=== PATIENT | male | born 2000 | race American Indian/Alaskan Native ===

== ENCOUNTER 2019-09-14 11:42 | Emergency (ER) | payer SELFPAY ==
[2019-09-14 11:53] VITALS: BP 139/86
--- NOTE | 2019-09-14 12:26 | XRay Report ---
Left shoulder-3 views INDICATION: MAIN: left shoulder pain ; pt complain left shoulder pops when he moves it x 1 week. COMPARISON: None. IMPRESSION: No acute osseous or soft tissue abnormality. No significant DJD. Signer Name: Miguel Ángel Soliz MD Signed: 09/14/2019 12:21 PM Workstation Name: [id number]
--- NOTE | 2019-09-14 12:37 | Emergency Department Report ---
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 States that following those 2 events he began having dull throbbing pain which was worsened with palpation and extension and elevation of his shoulder and elbow. IcyHot and sling do help manage the symptoms. Reports no numbness or tingling to the hand or wrist or fingers does still have full range of motion. Symptoms have been been present for the last 2 weeks) Mechanism: Fall Symptoms: Yes Pain with Movement, No Limited Range of Movement, No Swelling, No Bruising/Ecchymosis ED Review of Systems ROS: Stated complaint: LEFT ROTATOR CUFF FEELS TORN Other details as noted in HPI Comment: All other systems reviewed and negative ED Past Medical Hx - Past Medical History Previous Medical History?: No - Surgical History Past Surgical History?: No - Social History Smoking Status: Never Smoker Substance Use Type: None - Medications Home Medications: Home Medications Medication Instructions Recorded Confirmed Last Taken Type Ketorolac [Toradol] 10 mg PO Q6H PRN #14 tablet 09/14/19 Unknown Rx Upper Extremity Exam - Exam General: Vital signs noted. No distress. Alert and acting appropriately. Head and Torso: No HEENT Abnormality, No Neck Tenderness, No Chest/Lungs Abnormality, No Abdominal Tenderness, No Back Tenderness Shoulder Exam: Yes Shoulder Tenderness (No sulcus sign. Pain with O'Briens and Coyle test. Strength 5 of 5 full range of motion is noted. No scapular tenderness noted. No rashes or discoloration.), Yes Normal Range of Motion in Shoulder, No Clavicle Tenderness, No Shoulder Deformity, No AC Joint Tenderness Arm Exam: No Arm/Humerus Tenderness, No Arm Deformity Elbow: Yes Elbow Tenderness (There is some tenderness to the lateral epicondyles of the elbow as well. There is full range of motion no crepitus is noted.), No Normal Range of Motion in Elbow, No Elbow Deformity Forearm: No Forearm Tenderness, No Forearm Deformity, No Pain with Pronation, No Pain with Supination Wrist: Yes Normal ROM in Wrist, No Wrist Tenderness, No Wrist Deformity, No Snuffbox Tenderness, No Pain with Axial Thumb Compression Hand: Yes Normal ROM in Digit(s), No Hand Tenderness, No Hand Deformity, No Digit Tenderness, No Digit(s) Deformity, No Tendon Dysfunction CMS Exam: No Broken Skin, No Normal Distal Pulses, No Normal Capillary Refill, No Normal Distal Sensation ED Course Vital Signs 09/14/19 11:48 Temperature 98.2 F Pulse Rate 63 Respiratory 18 Rate Blood Pressure 139/86 [Left] O2 Sat by Pulse 97 Oximetry Critical care attestation.: If time is entered above; I have spent that time in minutes in the direct care of this critically ill patient, excluding procedure time. ED Disposition Clinical Impression: Left elbow tendonitis Disposition: - TO HOME OR SELFCARE Is pt being admited?: No Does the pt Need Aspirin: No Condition: Stable Instructions: Elbow Sprain (ED), Tennis Elbow (ED), Ice Pack Application (ED) Prescriptions: Ketorolac [Toradol] 10 mg PO Q6H PRN #14 tablet PRN Reason: Pain Referrals: ANEUDY GRANADOS MD [Staff Physician] - 3-5 Days
== END 2019-09-14 12:47 | disposition home or self-care (01) ==
LOC: ED 11:42
DX: M77.9 Enthesopathy, unspecified (principal); M25.512 Pain in left shoulder; M25.522 Pain in left elbow; Z79.899 Other long term (current) drug therapy

== ENCOUNTER 2019-12-19 11:36 | Emergency (ER) | payer SELFPAY ==
[2019-12-19 13:13] VITALS: BP 136/79
--- NOTE | 2019-12-19 13:19 | Emergency Department Report ---
Chief Complaint: Upper Respiratory Infection Stated Complaint: NOSE PAIN Time Seen by Provider: 12/19/19 13:15 - HPI History of Present Illness: 19-year-old healthy male presents to the ED complaining of loss of sense of smell for the past 5 days. Patient states that around December 10 he noticed a sore throat which has resolved completely now. Patient states that his loss of smell began December 13. Patient states now he is able to smell certain things but no injuries or trauma. Patient states he went to pharmacy and was told he has nasal polyps. Patient denies fever/chills/nausea vomiting. Patient states he works at [employer] and is unsure if he had any sick contact. Patient denies chest pain, shortness of breath - ROS Review of Systems: As noted in HPI - Exam Vital Signs: Vital Signs 12/19/19 13:13 Temperature 97.7 F Pulse Rate 60 Respiratory 14 Rate Blood Pressure 136/79 O2 Sat by Pulse 99 Oximetry Physical Exam: GENERAL: Alert and oriented x3, no apparent distress, Normal Gait, atraumatic. HEAD: Head is normocephalic and a-traumatic. NOSE: Nose symetrical, Nontender,Nares appeared normal. MOUTH:Mouth is well hydrated and without lesions. Tonsils nonerythematous or swollen, Uvula midline, Tongue not elevated. Mucous membranes are moist. Posterior pharynx clear, no exudate or lesions. Patent airways. NECK: Supple. Non edematous, LUNGS: Symetrical with respiration, No wheezing, no rales or crackles, CTAB. HEART: S1, S2 present, regular rate and rhythm SKIN: Warm and dry, No lesions, No ulceration or induration present. MSE screening note: Focused history and physical exam performed. Due to findings the following was ordered: ED Medical Decision Making - Medical Decision Making 19-year-old male presents with physically well but worried. Discussed with the patient that this may sounds like symptoms of allergies or he may have been exposed to COVID-19. Discussed with patient to get tested as soon as he can and quarantine at home. Patient reports feeling well, no respiratory distress and is in no acute distress. All vital signs are normal. Discussed with patient to follow-up with primary care physician as referred. ED Disposition for MSE Clinical Impression: Nasal polyp, Rhinitis Disposition: - TO HOME OR SELFCARE Is pt being admited?: No Does the pt Need Aspirin: No Condition: Stable Instructions: COVID-19, Allergic Rhinitis (ED) Additional Instructions: Make sure to follow up with the primary care physician as discussed. Take all your medications as you've been prescribed. If you have any worsening symptoms or develop new symptoms please return to ED immediately. Referrals: PRIMARY CARE, [Primary Care Provider] - 3-5 Days [facility] [Outside] - 3-5 Days [facility] [Outside] - 3-5 Days Forms: Work/School Release Form(ED) Time of Disposition: 13:36
== END 2019-12-19 13:44 | disposition left against medical advice (07) ==
LOC: ED 11:36
DX: R04.0 Epistaxis (principal); Z53.21 Procedure and treatment not carried out due to patient leaving prior to being seen by health care provider

== ENCOUNTER 2021-12-18 10:10 | Emergency (ER) | payer SELFPAY ==
[2021-12-18 10:32] VITALS: BP 130/79
--- NOTE | 2021-12-18 13:48 | Emergency Department Report ---
ED Male HPI - General Chief complaint: Urogenital-Male Stated complaint: SIDE PAIN, RASH Time Seen by Provider: 12/18/21 13:29 Source: patient Mode of arrival: Ambulatory Limitations: No Limitations - History of Present Illness Initial comments: Patient 21-year-old male who presents for penile rash with clear discharge for the past 2 weeks. States dysuria frequency urgency no open sores or canker. Patient advises partner has no symptoms. No fevers no chills. No history of HSV or HIV. Symptoms are exacerbated by patient scratching. Relieved by nothing tried. Patient denies pain or penile discharge at this time. - Related Data Previous Rx's Medication Instructions Recorded Last Taken Type Ketorolac [Toradol] 10 mg PO Q6H PRN #14 tablet 09/14/19 Unknown Rx DOXYCYCLINE Hyclate [Vibramycin 100 mg PO BID #14 capsule 12/18/21 Unknown Rx CAP] Allergies Allergy/AdvReac Type Severity Reaction Status Date / Time No Known Allergies Allergy Verified 09/14/19 11:48 ED Review of Systems ROS: Stated complaint: SIDE PAIN, RASH Other details as noted in HPI Constitutional: denies: chills, fever Eyes: denies: eye pain, eye discharge, vision change ENT: as per HPI Respiratory: denies: cough, shortness of breath, wheezing Cardiovascular: denies: chest pain, palpitations Endocrine: no symptoms reported Gastrointestinal: denies: abdominal pain, nausea, diarrhea Genitourinary: discharge (Clear), other. denies: urgency, dysuria (Penile rash), frequency, hematuria Musculoskeletal: denies: back pain, joint swelling, arthralgia Skin: denies: rash, lesions Neurological: denies: headache, weakness, paresthesias Psychiatric: denies: anxiety, depression Hematological/Lymphatic: denies: easy bleeding, easy bruising ED Past Medical Hx - Past Medical History Previous Medical History?: No - Surgical History Past Surgical History?: No - Social History Smoking Status: Current Some Day Smoker Substance Use Type: Marijuana - Medications Home Medications: Home Medications Medication Instructions Recorded Confirmed Last Taken Type Ketorolac [Toradol] 10 mg PO Q6H PRN #14 tablet 09/14/19 Unknown Rx DOXYCYCLINE Hyclate [Vibramycin 100 mg PO BID #14 capsule 12/18/21 Unknown Rx CAP] ED Physical Exam - General Limitations: No Limitations General appearance: alert, in no apparent distress - Head Head exam: Present: normocephalic, normal inspection - Eye Eye exam: Present: EOMI Pupils: Present: normal accommodation - ENT ENT exam: Present: mucous membranes moist - Neck Neck exam: Present: normal inspection, full ROM. Absent: tenderness, lymphadenopathy - Respiratory Respiratory exam: Present: normal lung sounds bilaterally. Absent: respiratory distress, wheezes - Cardiovascular Cardiovascular Exam: Present: regular rate, normal rhythm, normal heart sounds. Absent: systolic murmur, diastolic murmur, rubs, gallop - GI/Abdominal GI/Abdominal exam: Present: soft, normal bowel sounds. Absent: distended, tenderness - Rectal Rectal exam: Present: deferred - exam: Present: circumcision, other (Rash dry flaky to glans penis no discharge noted rash is nonpainful). Absent: testicular tenderness, urethral discharge, scrotal swelling External exam: Absent: erythema, swelling, lesions, lacerations, ecchymosis, bleeding - Extremities Exam Extremities exam: Present: normal inspection, full ROM, normal capillary refill - Back Exam Back exam: Present: normal inspection, full ROM. Absent: CVA tenderness (R), CVA tenderness (L) - Neurological Exam Neurological exam: Present: alert, oriented X3, CN II-XII intact, normal gait - Psychiatric Psychiatric exam: Present: normal affect, normal mood - Skin Skin exam: Present: warm, dry, intact, normal color ED Course Vital Signs 12/18/21 10:30 Temperature 98.2 F Pulse Rate 62 Respiratory 16 Rate Blood Pressure 130/79 [Left] O2 Sat by Pulse 100 Oximetry ED Medical Decision Making - Medical Decision Making Plan treat for balanitis, dysuria DC'd home with prescription for doxycycline patient will follow-up with health department for HSV and HIV screening. Patient verbalized agreement understanding of discharge plan. Patient DC'd home in stable condition at this time. Critical care attestation.: If time is entered above; I have spent that time in minutes in the direct care of this critically ill patient, excluding procedure time. ED Disposition Clinical Impression: Dysuria, Rash Disposition: HOME / SELF CARE / HOMELESS Is pt being admited?: No Does the pt Need Aspirin: No Condition: Stable Instructions: Rash, Adult, [id number], Urethritis, Adult Additional Instructions: Take medications as prescribed, follow-up with your doctor in 2 to 3 days. Follow-up with health department for HIV and HSV screening return to emergency department should symptoms worsen. Practice safe sex. Prescriptions: DOXYCYCLINE Hyclate [Vibramycin CAP] 100 mg PO BID #14 capsule Referrals: PRIMARY CARE, [Primary Care Provider] - 3-5 Days Forms: Work/School Release Form(ED) Time of Disposition: 13:50
== END 2021-12-18 14:15 | disposition home or self-care (01) ==
LOC: ED 10:10
DX: R21 Rash and other nonspecific skin eruption (principal); R30.0 Dysuria; F17.200 Nicotine dependence, unspecified, uncomplicated
CPT/HCPCS: 99282